=== PATIENT | female | born 1965 | race Caucasian/White ===

== ENCOUNTER 2016-07-11 11:09 | Emergency (ER) | payer MEDICAID, OTHER ==
[2016-07-11 11:17] VITALS: BP 128/82; PULSE 70; RESP 15; TEMP 97.9; O2SAT 92
--- NOTE | 2016-07-11 12:02 | UCPHY ---
H & P Patient Type: New Chief Complaint Nursing Narrative: cough and chest congestion, body aches since tuesday. also with l ear pain HPI/ROS: CHIEF COMPLAINT: Cough History by patient HISTORY OF PRESENT ILLNESS: 42-year-old woman presents with 4 days of cough, fever, body aches and fatigue as well as sinus congestion and ear pain. She has been taking [id number] medicines with minimal relief. There has been no nausea, vomiting or diarrhea. She denies any shortness of breath or chest pain. She has been exposed to ill people she works at [employer]. She does not smoke. She did get a flu shot this year. REVIEW OF SYSTEMS: As in HPI, and all other systems reviewed and are negative - Personal History LMP (Females 10-55): Over 28 Days Ago Tetanus Vaccine Date: 2012 - Medical/Surgical History Hx Asthma: No Hx Chronic Respiratory Disease: No Hx Diabetes: No Hx Cardiac Disease: No Hx Renal Disease: No Hx Cirrhosis: No Hx Alcoholism: No Hx HIV/AIDS: No Hx Splenectomy or Spleen Trauma: No Other PMH: htn, sleep apnea - Family History Significant Family History: No pertinent family hx - Social History Smoking Status: Never smoked - Physical Exam Exam: General Appearance: Alert and no distress. Obese Head: normocephalic, atraumatic, no sinus tenderness Eyes: Pupils equal and round no injection. Ears: TM clear bilat OP: mucus membranes moist, no tonsillar enlargement, no exudates, mild erythema Neck: no meningismus, no cervical nodes, no submandibular nodes Respiratory: Chest is nontender, lungs are clear to auscultation. Positive wheezy cough Cardiac: regular rate and rhythm. Gastrointestinal: Abdomen is soft and nontender, no masses, bowel sounds normal. Musculoskeletal: Neck is supple and nontender. Extremities have full range of motion and are nontender. Skin: No rashes or lesions. Constitutional: Initial Vital Signs Temperature (C) 36.6 C 07/11/16 11:14 Heart Rate 70 07/11/16 11:14 Respiratory Rate 15 07/11/16 11:14 Blood Pressure 128/82 H 07/11/16 11:14 O2 Sat (%) 92 07/11/16 11:14 O2 Delivery Mode Room Air Allergies/Adverse Reactions: Sulfa (Sulfonamide Antibiotics) Allergy (Severe, Verified 04/08/14 12:05) lost eye sight Home Medications: Medication Instructions Recorded Atenolol [Tenormin 25 mg (*)] 05/26/11 Cetirizine [ZyrTEC] 05/26/11 Ranitidine HCl 04/08/14 Medical Decision Making ED Course/Re-evaluation: Patient presents with upper respiratory infection symptoms but no evidence of hypoxia, respiratory compromise or significant systemic toxicity. We discussed home care and conservative measures. Departure - Departure Disposition: Home, Routine, Self-Care Clinical Impression: Influenza-like illness Condition: Good Instructions: Influenza (ED) Additional Instructions: You were seen by Dr. Ale Bowman today. Return for any worsening or new concerns. Try using your inhaler for coughing up to every 4 hours and before he goes to sleep at night. Try also hot drinks with honey. Referrals: SHASHANK WARE,. [Primary Care Provider] - As per Instructions - PQRS PQRS Measurement: NA
== END 2016-07-11 12:05 | disposition home or self-care (01) ==
LOC: CED 11:09
DX: R05 Cough (principal); R53.83 Other fatigue; R09.81 Nasal congestion; H92.02 Otalgia, left ear
CPT/HCPCS: 99204-PO; G0463-PO